=== PATIENT | female | born 1935 | race Caucasian/White ===

== ENCOUNTER 2018-10-11 12:11 | Emergency (ER) | payer OTHER ==
--- NOTE | 2018-10-11 12:46 | PDOC ---
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 States that the morning after the first dose on Wednesday night she has had nausea and vomiting after most meals. Denies any vomiting or diarrhea today as she states she stopped the antibiotics last night. Denies fevers, chills, chest pain, SOB, or urinary symptoms. We spoke to Dr. Nathan Bass at home and the nitrofurantoin was prophylactic antibiotics post procedure. Past History - Past Medical History Allergies/Adverse Reactions: Allergies Allergy/AdvReac Type Severity Reaction Status Date / Time No Known Allergies Allergy Unverified 01/04/13 08:15 Home Medications: Ambulatory Orders Amlodipine Bes/Olmesartan Med [Truong 10-20 mg Tablet] 1 each PO DAILY 01/04/13 Aspirin 81 mg PO DAILY 01/04/13 Atorvastatin Ca [Lipitor (*)] 10 mg PO DAILY 01/04/13 Clonazepam 2 mg PO HS 01/04/13 Glipizide [Glucotrol] 10 mg PO BID@0700,1630 01/04/13 Insulin Glargine,Hum.rec.anlog [Lantus Solostar PEN] 20 units PEN 01/04/13 Memantine HCl [Namenda] 5 mg PO DAILY 01/04/13 Metoprolol Succinate [Toprol XL] 75 mg PO DAILY 01/04/13 Ranitidine [Zantac] 150 mg PO BID 01/04/13 Anemia: No Asthma: No Cancer: No Cardiac Disorders: No CVA: No COPD: No CHF: No Dementia: No Diabetes: Yes GI Disorders: No Disorders: No HTN: Yes Hypercholesterolemia: Yes Liver Disease: No Seizures: No Thyroid Disease: No - Surgical History Abdominal Surgery: No Appendectomy: No Cardiac Surgery: No Cholecystectomy: No Lung Surgery: No Neurologic Surgery: No Orthopedic Surgery: No - Suicide/Smoking/Psychosocial Hx Smoking History: Former smoker Have you smoked in the past 12 months: No If you are a former smoker, when did you quit?: 30 YEARS Hx Alcohol Use: No Drug/Substance Use Hx: No Hx Substance Use Treatment: No Review of Systems - Review of Systems Constitutional: Yes: Loss of Appetite. No: Chills, Diaphoresis, Fever HEENTM: No: Eye Pain, Blurred Vision Respiratory: No: Cough, Orthopnea, Shortness of Breath, SOB at Rest Cardiac (ROS): No: Chest Pain, Edema ABD/GI: Yes: Diarrhea, Nausea, Poor Appetite, Poor Fluid Intake, Vomiting : No: Burning, Dysuria, Discharge Musculoskeletal: Yes: Joint Pain. No: Back Pain, Gout Integumentary: No: Bruising, Flushing, Lesions Neurological: No: Headache, Numbness Psychiatric: No: Anxiety, Depression Hematologic/Lymphatic: No: Anemia, Blood Clots, Easy Bleeding *Physical Exam - Physical Exam General Appearance: Yes: Nourished, Appropriately Dressed. No: Apparent Distress HEENT: positive: EOMI, FLOYD, Normal Voice. negative: Normal ENT Inspection (mm dry) Neck: positive: Trachea midline, Normal Thyroid, Supple. negative: Tender, Rigid Respiratory/Chest: positive: Lungs Clear, Normal Breath Sounds. negative: Chest Tender, Respiratory Distress, Accessory Muscle Use Cardiovascular: positive: Regular Rhythm, Regular Rate Gastrointestinal/Abdominal: positive: Normal Bowel Sounds, Flat, Soft. negative : Tender Lymphatic: negative: Adenopathy, Tenderness Musculoskeletal: positive: Normal Inspection. negative: Decreased Range of Motion Extremity: positive: Normal Capillary Refill, Normal Inspection, Normal Range of Motion. negative: Tender Integumentary: positive: Normal Color, Dry, Warm Neurologic: positive: Fully Oriented, Alert, Normal Mood/Affect, Normal Response , Motor Strength 5/5 ED Treatment Course - LABORATORY CBC & Chemistry Diagram: 10/11/18 13:30 10/11/18 13:30 Medical Decision Making - Medical Decision Making 82 year old with recent abx usage for post cystoscopy prophylaxis presenting with nausea, vomitign ,a dnadiarrhe after starting abx that has completed stopped today after discontinuing abx. Oral temp was slightly elevated but rectal temp was WNL. No sign of infection on labs or UA. She does have a baseline CKD and anemia that is not worse than usual. SHe admits she hasn't taken any of her medications today so her prssure and her blood sugars are elevated for that reason. Dr. Nathan Bass informed us that she does not need any more antibiotics as she didn't have a UTI. Will DC with return precautions and follow up instructions. 10/11/18 14:08 *DC/Admit/Observation/Transfer Diagnosis at time of Disposition: Nausea & vomiting Qualifiers: Vomiting type: unspecified Vomiting Intractability: non-intractable Qualified Code(s): R11.2 - Nausea with vomiting, unspecified - Discharge Dispostion Disposition: HOME Condition at time of disposition: Improved Decision to Admit order: No - Referrals Referrals: Elizabeth Haines MD [Primary Care Provider] - - Patient Instructions Printed Discharge Instructions: DI for Nausea -- Adult Additional Instructions: Ivon nuseas y vmitos probablemente se debieron a tam uso de antibiticos. Ya no necesitas antibiticos. Por favor tome tam presin arterial y medicamentos para la diabetes hoy. Por favor juani un seguimiento con tam PCP la prxima semana. Regrese a la claudia de emergencias si tiene sntomas nuevos o que empeoran. - Post Discharge Activity
[2018-10-11] MEDS ORDERED: ACETAMINOPHEN 1000 MG/100 ML VIAL (NON FORMULARY) IVPB ONE (13:07)
[2018-10-11 13:08] VITALS: BMI 25.4
--- NOTE | 2018-10-11 13:23 | PDOC ---
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 She states she developed nausea and vomiting after most meals which started the morning after the first dose on Wednesday night. She deneis any abdominal pain. Denies any vomiting or diarrhea today as she states she stopped the antibiotics last night. Denies fevers, chills, chest pain, SOB, or urinary symptoms. - Physicial Exam PE: 10/11/18 14:59 GENERAL: The patient is in no acute distress. HEAD: Normal with no signs of trauma. EYES: PERRLA, EOMI, sclera anicteric, conjunctiva clear. ENT: Ears normal, nares patent, oropharynx clear without exudates. Moist mucous membranes. NECK: Normal range of motion, supple without lymphadenopathy, JVD, or masses. LUNGS: Breath sounds equal, clear to auscultation bilaterally. No wheezes, and no crackles. HEART:Regular rate and rhythm, normal S1 and S2 without murmur, rub or gallop. ABDOMEN: Soft, nontender, normoactive bowel sounds. No guarding, no rebound. No masses palpable. EXTREMITIES: Normal range of motion, no edema. No clubbing or cyanosis. No erythema, or tenderness. NEUROLOGICAL: Cranial nerves II through XII grossly intact. Normal speech. No focal neurological deficits. MUSCULOSKELETAL: Back non-tender to palpation, no CVA tenderness SKIN: Warm, Dry, normal turgor, no rashes or lesions noted. <Madelyn Nolan - Last Filed: 10/11/18 14:58> - Resident Resident Name: Massiel Coleman - ED Attending Attestation I have performed the following: I have examined & evaluated the patient, The case was reviewed & discussed with the resident, I agree w/resident's findings & plan, Exceptions are as noted - Medical Decision Making 10/12/18 11:34 Laboratory Tests 10/11/18 10/11/18 13:30 13:42 Sodium 134 L Potassium 4.0 Chloride 97 L Carbon Dioxide 28 BUN 28 H Creatinine 2.7 H Random Glucose 308 H* Urine Nitrite Negative Urine Bilirubin Negative Ur Leukocyte Esterase Negative 10/12/18 11:34 Laboratory Tests 02/16/18 10/11/18 09:26 13:30 WBC 4.0 4.5 Hgb 10.4 L D 10.5 L Hct 30.5 L 30.2 L Plt Count 336 288 Will discharge to home Will ask pt to follow up with UROLOGIST return to the ER for any other concerns or complaints <Fadumo Farah - Last Filed: 10/12/18 11:35> Attestations - Attestations 10/11/18 14:59 Documentation prepared by Madelyn Nolan, acting as biomedical engineering director for Fadumo Farah MD <Madelyn Nolan - Last Filed: 10/11/18 14:58>
[2018-10-11 13:39] LABS: BASO % 0.9 % (0-2.0); EOS % 0.4 % (0-4.5); HEMATOCRIT 30.2 % (32.4-45.2); HEMOGLOBIN 10.5 GM/dL (10.7-15.3); LYMPH % 23.2 % (8-40); MCH 31.2 pg (25.7-33.7); MCHC 34.6 g/dl (32.0-36.0); MEAN PLT VOLUME 7.3 fl (7.5-11.1); MONO % 11.2 % (3.8-10.2); NEUT % 64.3 % (42.8-82.8); PLATELET COUNT 288 K/MM3 (134-434); RBC 3.36 M/mm3 (3.60-5.2); RDW 13.5 % (11.6-15.6); WHITE BLOOD COUNT 4.5 K/mm3 (4.0-10.0)
[2018-10-11] MEDS ORDERED: ACETAMINOPHEN INJECTION 100 ML IVPB ONE (13:42)
[2018-10-11 14:02] LABS: URINE APPEARANCE CLEAR; URINE BILIRUBIN NEGATIVE (<2.0 mg/dL); URINE COLOR STRAW; URINE GLUCOSE (UA) 3+ (NEGATIVE); URINE KETONE NEGATIVE (NEGATIVE); URINE LEUK ESTERASE NEGATIVE (NEGATIVE); URINE NITRITE NEGATIVE (NEGATIVE); URINE PROTEIN 3+ (NEGATIVE); URINE UROBILINOGEN NEGATIVE mg/dL (0.2-1.0)
[2018-10-11 14:09] LABS: EPI CELLS RARE /HPF (FEW)
[2018-10-11 14:13] LABS: ALBUMIN 3.4 g/dl (3.4-5.0); ALK PHOS 116 U/L (45-117); ANION GAP 8 MMOL/L (8-16); BILIRUBIN,TOTAL 0.2 mg/dL (0.2-1); BLOOD UREA NITROGEN 28 mg/dL (7-18); CALCIUM 8.6 mg/dL (8.5-10.1); CHLORIDE 97 mmol/L (98-107); CO2 28 mmol/L (21-32); CREATININE 2.7 mg/dL (0.55-1.3); SGOT/AST 18 U/L (15-37); SGPT/ALT 14 U/L (13-61); SODIUM 134 mmol/L (136-145); TOT PROT 6.8 g/dl (6.4-8.2)
[2018-10-11 14:25] LABS: GLUCOSE,RANDOM 308 mg/dL (74-106)
[2018-10-11 15:13] VITALS: BP 167/74; PULSE 70; TEMP 98.2
== END 2018-10-11 15:13 | disposition home or self-care (01) ==
LOC: JER 12:11
PROC: 3E033NZ Introduction of Analgesics, Hypnotics, Sedatives into Peripheral Vein, Percutaneous Approach (ICD-10-PCS; principal; 2018-10-11)
DX: R11.2 Nausea with vomiting, unspecified (principal); R19.7 Diarrhea, unspecified; Z98.890 Other specified postprocedural states; I10 Essential (primary) hypertension; E11.9 Type 2 diabetes mellitus without complications; Z79.84 Long term (current) use of oral hypoglycemic drugs; E78.00 Pure hypercholesterolemia, unspecified
CPT/HCPCS: 36415; 80053; 81003; 81015; 82962; 85025; 87086; 96374; 99281-25; J0131